=== PATIENT | female | born 1985 ===

== ENCOUNTER 2025-05-13 06:00 | Day surgery (SDC) | payer OTHER ==
[2025-05-07 11:41] VITALS: BP 115/78
[2025-05-07 11:57] LABS: COVID-19 AG NEGATIVE (NEGATIVE)
[~2025-05-13] VITALS: Ht 167.6 cm; Wt 67.6 kg
[~2025-05-13 06:00] MED LIST: PROBIOTIC1 EAC4; TYLENOL325 MG
[2025-05-13] MEDS ORDERED: CEFAZOLIN SODIUM 1,000 MG VIAL ONE (07:42)
[2025-05-13] MEDS ORDERED: METRONIDAZOLE/SODIUM CHLORIDE 500 MG/100 ML PIGGYBACK IV ONE (07:42)
[2025-05-13] MEDS ORDERED: POVIDONE-IODINE 118 ML BOTT TOP ONE (09:32)
[2025-05-13] MEDS ORDERED: HEMOSTATIC MATRIX WITH THROMBIN KIT TOP ONE (10:20)
[2025-05-13] MEDS ORDERED: SURGIFLO APPLICATOR 1 EACH APPL TOP ONE (10:20)
[2025-05-13] MEDS ORDERED: KETOROLAC TROMETHAMINE 30 MG VIAL IV ONE (11:00)
[2025-05-13] MEDS ORDERED: KETOROLAC TROMETHAMINE 30 MG VIAL ONE (11:45)
== END 2025-05-13 14:05 | disposition home or self-care (01) ==
LOC: CIR.AMB 06:00
PROVIDERS: ATTEND Obstetrics & Gynecology Gynecologic Oncology
DX: D27.1 Benign neoplasm of left ovary (principal)